=== PATIENT | female | born 1975 | race Hispanic/Latino ===

== ENCOUNTER 2018-08-06 04:02 | Emergency (ER) | payer OTHER | END 2018-08-06 05:04 | disposition home or self-care (01) | LOC: EDH 04:02 | DX: H92.02 Otalgia, left ear (principal); E11.9 Type 2 diabetes mellitus without complications | CPT/HCPCS: 99281 ==

== ENCOUNTER 2023-02-27 07:52 | Observation (INO) | payer MEDICAID ==
[2023-02-24 11:15] LABS: BASOPHILS % (AUTO) 0.5 % (0.0-5.0); EOSINOPHILS % (AUTO) 3.5 % (0.0-8.0); HEMATOCRIT 39.2 % (36-48); MEAN CORPUSCULAR HEMOGLOBIN 31.8 pg (27.0-33.0); MEAN CORPUSCULAR HGB CONC 33.7 g/dL (32.0-36.0); MEAN CORPUSCULAR VOLUME 94.5 fL (79-99); MONOCYTES % (AUTO) 10.4 % (3.0-13.0); NEUTROPHILS % (AUTO) 61.9 % (40.0-77.0); PLATELET COUNT (AUTO) 196 K/uL (130-400); RED BLOOD CELL COUNT(AUTO) 4.15 MIL/uL (4.00-5.50); RED CELL DISTRIBUTION WIDTH 12.4 % (11.0-15.5); WHITE BLOOD COUNT (AUTO) 7.5 K/uL (4.8-10.8)
[2023-02-24 11:27] LABS: APPEARANCE,URINE CLOUDY (CLEAR); BILIRUBIN,URINE NEGATIVE (NEGATIVE); COLOR,URINE LIGHT-YELLOW (YELLOW); GLUCOSE, URINE (UA) >=1000 mg/dL (NEGATIVE); KETONES,URINE NEGATIVE (NEGATIVE); LEUKOCYTE ESTERASE ,URINE 500 Leu/uL (NEGATIVE); NITRATE,URINE NEGATIVE (NEGATIVE); OCCULT BLOOD,URINE NEGATIVE (NEGATIVE); PH,URINE 5.5 (5.0-8.0); PROTEIN,URINE 30 mg/dL (NEGATIVE); UROBILINOGEN,URINE 0.2 mg/dL (0.2-1.0)
[2023-02-24 11:38] LABS: CREATININE 0.9 mg/dL (0.5-1.5); POTASSIUM 5.1 mmol/L (3.5-5.1)
[2023-02-24 11:50] LABS: INR 0.93 (0.85-1.15); PROTHROMBIN TIME 9.5 SEC (9.6-11.6)
[2023-02-24 11:52] LABS: PARTIAL THROMBOPLASTIN TIME 25.6 SEC (26.3-35.5)
[2023-02-24 11:54] LABS: BACTERIA,URINE RARE /HPF (None Seen); MUCUS,URINE RARE LPF (None Seen); SQUAMOUS EPITHELIAL CELL,UR RARE /HPF (0-2); WBC,URINE 26-50 /HPF (0-1)
[2023-02-24 12:15] VITALS: BP 113/67
[2023-02-24 13:25] LABS: B-TYPE NATRIURETIC PEPTIDE 233 pg/mL (0-100)
[~2023-02-27] VITALS: Ht 160 cm; Wt 77.1 kg
[2023-02-27] VITALS (10 sets, daily range): BP systolic 107–133; BP diastolic 69–96
[~2023-02-27 07:52] MED LIST: ATOR40TA69 PO; EMPA10TA PO; FAMO20TA8 PO; INS7030 SQ; LISI20TA24 PO; METF-446 PO; METO25TA6 PO; PARO-37 PO
[2023-02-27] MEDS ORDERED: 0.9%NACL 1000ML 1,000 ML IV ONE (09:18)
[2023-02-27] MEDS ORDERED: LIDOCAINE HCL 400MG/20ML VIAL ONE (14:59)
[2023-02-27] MEDS ORDERED: MIDAZOLAM HCL 1 MG/ML 2ML VIAL ONE ×2 (15:00→15:53)
[2023-02-27] MEDS ORDERED: IOHEXOL-350 75 ML VIAL IV ONE ×2 (15:00→16:08)
[2023-02-27] MEDS ORDERED: FENTANYL CITRATE PF 50 MCG/1 ML 2ML VIAL ONE (15:00)
[2023-02-27] MEDS ORDERED: HEPARIN 10,000 UNIT/10ML (1,000 UNIT/ML) VIAL ONE (15:00)
[2023-02-27] MEDS ORDERED: VERAPAMIL HCL 2.5 MG/ML VIAL ONE (15:00)
[2023-02-27] MEDS ORDERED: NITROGLYCERIN 50MG VIAL ONE (15:00)
[2023-02-27] MEDS ORDERED: EPTIFIBATIDE 2 MG/ML 10 ML VIAL IVP ONE (16:19)
[2023-02-27] MEDS ORDERED: EPTIFIBATIDE 75MG/100ML BOTTLE 100 ML IV ONE (16:19)
[2023-02-27] MEDS ORDERED: ASPIRIN 81MG CHEW TAB ONE (16:20)
[2023-02-27] MEDS ORDERED: CLOPIDOGREL 300MG TAB ONE (16:20)
[2023-02-27] MEDS ORDERED: GLUCAGON 1MG KIT 1 MG ML IM PRN (17:30)
[2023-02-27] MEDS ORDERED: DEXTROSE 50%-WATER 50 ML DISP.SYRIN IV PRN (17:30)
[2023-02-27] MEDS ORDERED: 0.9% NACL 250ML 250 ML IV STA (21:20)
[2023-02-27] MEDS ORDERED: 0.9%NACL 1000ML 1,000 ML IV SCH (21:30)
[2023-02-28 00:03] VITALS: BP 102/66
[2023-02-28 04:20] VITALS: BP 103/63
[2023-02-28 07:09] LABS: CREATININE 0.8 mg/dL (0.5-1.5); POTASSIUM 4.2 mmol/L (3.5-5.1)
[2023-02-28] MEDS ORDERED: CLOP-31 PO (07:34)
[2023-02-28] MEDS ORDERED: ATOR40TA71 PO (07:34)
[2023-02-28] MEDS ORDERED: METO-408 PO (07:34)
[2023-02-28] MEDS ORDERED: ASPI-1197 PO (07:34)
[2023-02-28 08:10] VITALS: BP 132/80
[2023-02-28] MEDS ORDERED: METOPROLOL SUCCINATE 25 MG TAB.SR.24H PO SCH (09:00)
[2023-02-28] MEDS ORDERED: CLOPIDOGREL 75MG TAB PO SCH (09:00)
[2023-02-28] MEDS ORDERED: ASPIRIN 81MG CHEW TAB PO SCH (09:00)
[2023-02-28] MEDS ORDERED: ATORVASTATIN 40 MG TABLET PO SCH (21:00)
== END 2023-02-28 09:20 | disposition home or self-care (01) ==
LOC: DAH 07:52 → DAHIP 07:53 → DAH 07:53 → 2DH 21:00
PROVIDERS: ADMIT Student in an Organized Health Care Education/Training Program; ATTEND Student in an Organized Health Care Education/Training Program
DX: I25.10 Atherosclerotic heart disease of native coronary artery without angina pectoris (principal); I10 Essential (primary) hypertension; E11.9 Type 2 diabetes mellitus without complications; E78.5 Hyperlipidemia, unspecified; Z79.899 Other long term (current) drug therapy; Z98.890 Other specified postprocedural states; Z95.1 Presence of aortocoronary bypass graft
CPT/HCPCS: 80048 ×2; 83880; 84703; 85025; 85610; 85730; 87088; 81001; 36415 ×2; 71045; 93005; 92978; 93458; 93571; 85347 ×3; 87077; 87186; 82948 ×4; C1769 ×3; C1887 ×2; C1894; C1753; C1874 ×3; C1725 ×3; G0378 ×12; J3010; J3490 ×3; J7030; J1644 ×3; J2250 ×2; J1327 ×2; Q9967 ×2; J7050; A4215; A4223 ×3; A4222; A4221; A4663; A4216; A4606; C9600 ×2; 99156; 99157

== ENCOUNTER → 2023-04-11 | Outpatient (CLI) | payer MEDICAID ==
[~2023-04-11] MED LIST changes: +ASPI-1197 PO; +CLOP-31 PO; +METO-408 PO; -METO25TA6 PO
[2023-04-11 12:29] LABS: CHOLESTEROL 103 mg/dL (<200); HDL CHOLESTEROL 32 mg/dL (35-85); LDL DIRECT 56 mg/dL (0-99); TRIGLYCERIDES 125 mg/dL (30-200)
[2023-04-11 12:37] LABS: HEMOGLOBIN A1C 7.5 % (4.0-6.0)
== END | disposition home or self-care (01) ==
LOC: LAB 09:07
PROVIDERS: ATTEND Student in an Organized Health Care Education/Training Program
DX: E78.5 Hyperlipidemia, unspecified (principal); R07.9 Chest pain, unspecified
CPT/HCPCS: 36415; 80061; 83036

== ENCOUNTER 2023-04-15 09:27 | Emergency (ER) | payer MEDICAID ==
[~2023-04-15] VITALS: Ht 160 cm; Wt 79.4 kg
[2023-04-15 11:03] VITALS: BP 123/78
== END 2023-04-15 11:03 | disposition home or self-care (01) ==
LOC: EDH 09:27
DX: H43.12 Vitreous hemorrhage, left eye (principal); E11.9 Type 2 diabetes mellitus without complications; E78.00 Pure hypercholesterolemia, unspecified; I10 Essential (primary) hypertension; Z79.4 Long term (current) use of insulin; Z79.82 Long term (current) use of aspirin; Z79.84 Long term (current) use of oral hypoglycemic drugs; Z79.899 Other long term (current) drug therapy; Z95.5 Presence of coronary angioplasty implant and graft
CPT/HCPCS: 99281

== ENCOUNTER 2023-04-29 12:51 | Emergency (ER) | payer MEDICAID ==
[~2023-04-29] VITALS: Ht 160 cm; Wt 79.4 kg
[2023-04-29 13:25] LABS: BASOPHILS % (AUTO) 0.6 % (0.0-5.0); EOSINOPHILS % (AUTO) 3.6 % (0.0-8.0); HEMATOCRIT 36.2 % (36-48); LYMPHOCYTES % (AUTO) 20.3 % (21.0-51.0); MEAN CORPUSCULAR HEMOGLOBIN 31.7 pg (27.0-33.0); MEAN CORPUSCULAR HGB CONC 33.1 g/dL (32.0-36.0); MEAN CORPUSCULAR VOLUME 95.5 fL (79-99); MONOCYTES % (AUTO) 9.1 % (3.0-13.0); NEUTROPHILS % (AUTO) 65.8 % (40.0-77.0); PLATELET COUNT (AUTO) 198 K/uL (130-400); RED BLOOD CELL COUNT(AUTO) 3.79 MIL/uL (4.00-5.50); RED CELL DISTRIBUTION WIDTH 12.7 % (11.0-15.5); WHITE BLOOD COUNT (AUTO) 8.3 K/uL (4.8-10.8)
[2023-04-29] MEDS ORDERED: ASPIRIN 81MG CHEW TAB PO ONE (13:30)
[2023-04-29 13:33] LABS: CREATININE 0.9 mg/dL (0.5-1.5); POTASSIUM 4.4 mmol/L (3.5-5.1)
[2023-04-29 13:37] LABS: ALBUMIN 3.5 g/dL (3.5-5.0); MAGNESIUM 1.7 mg/dL (1.80-2.40); TOTAL PROTEIN, SERUM 7.4 g/dL (6.0-8.3)
[2023-04-29 13:56] LABS: AMPHET/METH SCREEN,URINE NEGATIVE (NEGATIVE); APPEARANCE,URINE CLOUDY (CLEAR); BARBITURATE SCREEN, URINE NEGATIVE (NEGATIVE); BENZODIAZEPINES SCREEN,URINE NEGATIVE (NEGATIVE); BILIRUBIN,URINE NEGATIVE (NEGATIVE); CANNABINOID SCREEN,URINE NEGATIVE (NEGATIVE); COCAINE SCREEN,URINE NEGATIVE (NEGATIVE); GLUCOSE, URINE (UA) >=1000 mg/dL (NEGATIVE); KETONES,URINE NEGATIVE (NEGATIVE); LEUKOCYTE ESTERASE ,URINE 500 Leu/uL (NEGATIVE); NITRATE,URINE 2+ (NEGATIVE); OCCULT BLOOD,URINE NEGATIVE (NEGATIVE); OPIATE SCREEN,URINE NEGATIVE (NEGATIVE); PHENCYCLIDINE SCREEN,URINE NEGATIVE (NEGATIVE); PROTEIN,URINE 50 mg/dL (NEGATIVE); UROBILINOGEN,URINE 0.2 mg/dL (0.2-1.0)
[2023-04-29 13:57] LABS: COLOR,URINE YELLOW (YELLOW)
[2023-04-29 13:58] LABS: BACTERIA,URINE FEW /HPF (None Seen); RBC,URINE 0-1 /HPF (0-1); SQUAMOUS EPITHELIAL CELL,UR RARE /HPF (0-2); WBC,URINE 26-50 /HPF (0-1)
[2023-04-29] MEDS ORDERED: CEPH500B PO (16:58)
[2023-04-29] MEDS ORDERED: CEFTRIAXONE 1G VIAL IM ONE (17:00)
[2023-04-29 17:22] VITALS: BP 121/68
== END 2023-04-29 17:31 | disposition home or self-care (01) ==
LOC: EDH 12:51
DX: N39.0 Urinary tract infection, site not specified (principal); E11.9 Type 2 diabetes mellitus without complications; E78.00 Pure hypercholesterolemia, unspecified; I10 Essential (primary) hypertension; Z79.4 Long term (current) use of insulin; Z79.82 Long term (current) use of aspirin; Z79.84 Long term (current) use of oral hypoglycemic drugs; Z79.899 Other long term (current) drug therapy; Z95.5 Presence of coronary angioplasty implant and graft
CPT/HCPCS: 99285; 71045; 83735; 84484 ×2; 80053; 83880; 80305; 85025; 87077; 87088; 87186; 83605; 81001; 36415; 96372; 93005; J0696

== ENCOUNTER 2023-09-10 10:16 | Inpatient (IN) | payer OTHER, SELFPAY ==
[~2023-09-10] VITALS: Ht 160 cm; Wt 80.3 kg
[~2023-09-10 10:16] MED LIST changes: +BACL5TAB PO; +HUM10VIA SQ; -INS7030 SQ; +ISOS30TA92 PO; +METO-391 PO; -METO-408 PO; -PARO-37 PO
[2023-09-10 10:59] LABS: BASOPHILS # (AUTO) 0.07 K/uL (0.00-0.20); BASOPHILS % (AUTO) 0.6 % (0.0-5.0); EOSINOPHILS # (AUTO) 0.19 K/uL (0.00-0.70); EOSINOPHILS % (AUTO) 1.5 % (0.0-8.0); HEMATOCRIT 39.5 % (36-48); IMMATURE GRANULOCYTE ABSOLUTE 0.16 K/uL (0-1); LYMPHOCYTES % (AUTO) 23.3 % (21.0-51.0); MEAN CORPUSCULAR HEMOGLOBIN 30.5 pg (27.0-33.0); MEAN CORPUSCULAR HGB CONC 31.6 g/dL (32.0-36.0); MEAN CORPUSCULAR VOLUME 96.3 fL (79-99); MONOCYTES % (AUTO) 7.9 % (3.0-13.0); NEUTROPHILS # (AUTO) 8.3 K/uL (1.8-7.7); NEUTROPHILS % (AUTO) 65.4 % (40.0-77.0); PLATELET COUNT (AUTO) 220 K/uL (130-400); RED CELL DISTRIBUTION WIDTH 14.2 % (11.0-15.5); WHITE BLOOD COUNT (AUTO) 12.7 K/uL (4.8-10.8)
[2023-09-10 11:07] LABS: CREATININE 1.1 mg/dL (0.5-1.5); POTASSIUM 4.9 mmol/L (3.5-5.1)
[2023-09-10 11:12] LABS: ALBUMIN 3.4 g/dL (3.5-5.0); BILIRUBIN,TOTAL 0.8 mg/dL (0.2-1.0); TOTAL PROTEIN, SERUM 6.9 g/dL (6.0-8.3)
[2023-09-10] MEDS ORDERED: ONDANSETRON 4MG INJ IVP ONE (11:30)
[2023-09-10] MEDS ORDERED: ASPIRIN 325MG TAB PO ONE (11:30)
[2023-09-10 12:27] LABS: B-TYPE NATRIURETIC PEPTIDE 32 pg/mL (0-100)
[2023-09-10] MEDS ORDERED: 0.9% NACL 500ML IV.SOLN 500 ML IV ONE (12:30)
[2023-09-10] MEDS ORDERED: NITROGLYCERIN 0.4 MG SL TAB SL PRN (13:00)
[2023-09-10] MEDS: 0.9%NACL 1000ML 1,000 ML IV SCH ×2 (13:07→17:16)
[2023-09-10 13:32] VITALS: BP 117/61; PULSE 81; RESP 18
[2023-09-10 13:33] LABS: INR < 0.93 (0.85-1.15); PROTHROMBIN TIME 9.9 SEC (9.6-11.6)
[2023-09-10 13:34] LABS: PARTIAL THROMBOPLASTIN TIME 24.4 SEC (26.3-35.5)
[2023-09-10 13:36] LABS: HEMOGLOBIN A1C 7.9 % (4.0-6.0)
[2023-09-10 13:47] LABS: THYROID STIMULATING HORMONE 1.67 uIU/mL (0.36-3.74)
[2023-09-10 13:47] LABS: APPEARANCE,URINE CLEAR (CLEAR); BILIRUBIN,URINE NEGATIVE (NEGATIVE); COLOR,URINE LIGHT-YELLOW (YELLOW); GLUCOSE, URINE (UA) >=1000 mg/dL (NEGATIVE); KETONES,URINE NEGATIVE (NEGATIVE); LEUKOCYTE ESTERASE ,URINE 75 Leu/uL (NEGATIVE); NITRATE,URINE NEGATIVE (NEGATIVE); OCCULT BLOOD,URINE NEGATIVE (NEGATIVE); PROTEIN,URINE NEGATIVE (NEGATIVE); UROBILINOGEN,URINE 0.2 mg/dL (0.2-1.0)
[2023-09-10 13:48] LABS: ADD UA MICROSCOPIC YES
[2023-09-10 13:50] LABS: MUCUS,URINE RARE LPF (None Seen); SQUAMOUS EPITHELIAL CELL,UR RARE /HPF (0-2); YEAST,URINE BUDDING MANY /HPF (None Seen)
[2023-09-10] MEDS: ZOSYN 3.375GM +NS 50ML IV SCH ×2 (15:21→21:15)
[2023-09-10] MEDS: HYDROXYZINE 25 MG TABLET PO SCH ×3 (15:28→21:00)
[2023-09-10] MEDS ORDERED: HYDROXYZINE 25 MG TABLET PO PRN (15:30)
[2023-09-10] MEDS: INSULIN HUMULIN R 100 UNIT/ML 3ML SQ SCH ×2 (15:56→20:33)
[2023-09-10 16:30] VITALS: BP 116/83; PULSE 85; RESP 18
[2023-09-10] MEDS ORDERED: INSULIN HUMULIN R 100 UNIT/ML 3ML SQ SCH (16:30)
[2023-09-10 18:49] VITALS: BP 96/69; PULSE 84; RESP 18
[2023-09-10] MEDS ORDERED: DAPA5TAB PO (19:22)
[2023-09-10] MEDS ORDERED: GABA300C PO (19:24)
[2023-09-10] MEDS ORDERED: BENZ-226 PO (19:26)
[2023-09-10] MEDS: ATORVASTATIN 40 MG TABLET PO SCH (20:22)
[2023-09-10] MEDS: TRAZODONE HCL 50 MG TAB PO SCH ×2 (20:23→21:00)
[2023-09-10] MEDS ORDERED: NON-FORMULARY MEDICATION 1 EACH (Baclofen 5 MG) PO PRN (20:30)
[2023-09-10 20:42] LABS: AMPHET/METH SCREEN,URINE NEGATIVE (NEGATIVE); BARBITURATE SCREEN, URINE NEGATIVE (NEGATIVE); BENZODIAZEPINES SCREEN,URINE NEGATIVE (NEGATIVE); CANNABINOID SCREEN,URINE NEGATIVE (NEGATIVE); COCAINE SCREEN,URINE NEGATIVE (NEGATIVE); OPIATE SCREEN,URINE NEGATIVE (NEGATIVE); PHENCYCLIDINE SCREEN,URINE NEGATIVE (NEGATIVE)
[2023-09-10] MEDS ORDERED: BACLOFEN 10 MG TABLET PO PRN (21:00)
[2023-09-10] MEDS ORDERED: GABAPENTIN 300 MG CAPSULE PO SCH (21:00)
[2023-09-10 23:01] VITALS: BP 97/60; PULSE 82; RESP 18
[2023-09-11] VITALS (7 sets, daily range): BP systolic 96–110; BP diastolic 47–67; PULSE 72–94; RESP 18–20; O2SAT 98
[2023-09-11] MEDS: 0.9%NACL 1000ML 1,000 ML IV SCH (05:03)
[2023-09-11 05:28] LABS: BASOPHILS # (AUTO) 0.04 K/uL (0.00-0.20); BASOPHILS % (AUTO) 0.4 % (0.0-5.0); EOSINOPHILS # (AUTO) 0.16 K/uL (0.00-0.70); EOSINOPHILS % (AUTO) 1.7 % (0.0-8.0); HEMATOCRIT 35.6 % (36-48); IMMATURE GRANULOCYTE ABSOLUTE 0.12 K/uL (0-1); LYMPHOCYTES # (AUTO) 2.2 K/uL (1.0-4.8); LYMPHOCYTES % (AUTO) 23.2 % (21.0-51.0); MEAN CORPUSCULAR HGB CONC 31.2 g/dL (32.0-36.0); MEAN CORPUSCULAR VOLUME 99.4 fL (79-99); MONOCYTES # (AUTO) 0.8 K/uL (0.1-1.0); MONOCYTES % (AUTO) 8.4 % (3.0-13.0); NEUTROPHILS # (AUTO) 6.1 K/uL (1.8-7.7); PLATELET COUNT (AUTO) 170 K/uL (130-400); RED BLOOD CELL COUNT(AUTO) 3.58 MIL/uL (4.00-5.50); RED CELL DISTRIBUTION WIDTH 14.3 % (11.0-15.5); WHITE BLOOD COUNT (AUTO) 9.4 K/uL (4.8-10.8)
[2023-09-11] MEDS: ZOSYN 3.375GM +NS 50ML IV SCH ×3 (05:31→22:32)
[2023-09-11 05:52] LABS: ALBUMIN 2.7 g/dL (3.5-5.0); BILIRUBIN,TOTAL 0.6 mg/dL (0.2-1.0); MAGNESIUM 2.1 mg/dL (1.80-2.40); POTASSIUM 4.5 mmol/L (3.5-5.1); TOTAL PROTEIN, SERUM 6.1 g/dL (6.0-8.3)
[2023-09-11] MEDS: INSULIN HUMULIN R 100 UNIT/ML 3ML SQ SCH ×4 (07:30→20:58)
[2023-09-11] MEDS: LISINOPRIL 20 MG TABLET PO SCH (08:22)
[2023-09-11] MEDS: ASPIRIN 81 MG EC TAB PO SCH (08:22)
[2023-09-11] MEDS: METOPROLOL SUCCINATE 50 MG TAB.SR.24H PO SCH (08:22)
[2023-09-11] MEDS: HYDROXYZINE 25 MG TABLET PO SCH ×3 (08:23→21:10)
[2023-09-11] MEDS: CLOPIDOGREL 75MG TAB PO SCH (08:24)
[2023-09-11] MEDS ORDERED: ISOSORBIDE MONO 30MG SR TAB PO SCH (09:00)
[2023-09-11] MEDS: ISOSORBIDE MONO 30MG SR TAB PO SCH (13:58)
[2023-09-11] MEDS: ATORVASTATIN 40 MG TABLET PO SCH (21:10)
[2023-09-11] MEDS: TRAZODONE HCL 50 MG TAB PO SCH (21:10)
[2023-09-12] VITALS (7 sets, daily range): BP systolic 91–119; BP diastolic 50–67; PULSE 67–80; RESP 18–20; O2SAT 98
[2023-09-12] MEDS: 0.9%NACL 1000ML 1,000 ML IV SCH (03:23)
[2023-09-12] MEDS: INSULIN HUMULIN R 100 UNIT/ML 3ML SQ SCH ×4 (05:17→20:43)
[2023-09-12] MEDS: ZOSYN 3.375GM +NS 50ML IV SCH ×3 (06:05→20:46)
[2023-09-12] MEDS ORDERED: REGADENOSON 0.4 MG/5 ML PF SYG IVP SCH (07:30)
[2023-09-12] MEDS: LISINOPRIL 20 MG TABLET PO SCH (09:04)
[2023-09-12] MEDS: ASPIRIN 81 MG EC TAB PO SCH (09:04)
[2023-09-12] MEDS: HYDROXYZINE 25 MG TABLET PO SCH ×3 (09:04→20:41)
[2023-09-12] MEDS: METOPROLOL SUCCINATE 50 MG TAB.SR.24H PO SCH (09:04)
[2023-09-12] MEDS: ISOSORBIDE MONO 30MG SR TAB PO SCH (09:04)
[2023-09-12] MEDS: CLOPIDOGREL 75MG TAB PO SCH (09:04)
[2023-09-12 09:07] LABS: HEMATOCRIT 34.1 % (36-48); MEAN CORPUSCULAR HEMOGLOBIN 31.2 pg (27.0-33.0); MEAN CORPUSCULAR HGB CONC 32.6 g/dL (32.0-36.0); MEAN CORPUSCULAR VOLUME 95.8 fL (79-99); RED BLOOD CELL COUNT(AUTO) 3.56 MIL/uL (4.00-5.50); RED CELL DISTRIBUTION WIDTH 14.3 % (11.0-15.5); WHITE BLOOD COUNT (AUTO) 8.1 K/uL (4.8-10.8)
[2023-09-12 09:24] LABS: CREATININE 0.9 mg/dL (0.5-1.5); MAGNESIUM 1.8 mg/dL (1.80-2.40); POTASSIUM 4.5 mmol/L (3.5-5.1)
[2023-09-12] MEDS: MAGNESIUM 2GM PREMIX 50ML 50 ML IV SCH (12:31)
[2023-09-12] MEDS: TRAZODONE HCL 50 MG TAB PO SCH (20:41)
[2023-09-12] MEDS: ATORVASTATIN 40 MG TABLET PO SCH (20:41)
[2023-09-13] VITALS (11 sets, daily range): BP systolic 94–152; BP diastolic 56–88; PULSE 68–80; RESP 18–20
[2023-09-13] MEDS: ZOSYN 3.375GM +NS 50ML IV SCH (06:27)
[2023-09-13] MEDS: INSULIN HUMULIN R 100 UNIT/ML 3ML SQ SCH ×4 (06:28→21:05)
[2023-09-13] MEDS: HYDROXYZINE 25 MG TABLET PO SCH ×3 (08:53→20:57)
[2023-09-13 08:58] LABS: HEMATOCRIT 35.9 % (36-48); MEAN CORPUSCULAR HEMOGLOBIN 31.1 pg (27.0-33.0); MEAN CORPUSCULAR HGB CONC 31.8 g/dL (32.0-36.0); MEAN CORPUSCULAR VOLUME 98.1 fL (79-99); RED BLOOD CELL COUNT(AUTO) 3.66 MIL/uL (4.00-5.50); RED CELL DISTRIBUTION WIDTH 14.2 % (11.0-15.5); WHITE BLOOD COUNT (AUTO) 8.1 K/uL (4.8-10.8)
[2023-09-13] MEDS ORDERED: LIDOCAINE HCL 400MG/20ML VIAL ONE (11:10)
[2023-09-13] MEDS ORDERED: IOHEXOL 350 MG/ML 100ML INFUS..BTL IV ONE (11:10)
[2023-09-13] MEDS ORDERED: BIVALIRUDIN 250 MG/VIAL IV ONE (11:10)
[2023-09-13] MEDS: ISOSORBIDE MONO 30MG SR TAB PO SCH (13:42)
[2023-09-13] MEDS: LISINOPRIL 20 MG TABLET PO SCH (13:42)
[2023-09-13] MEDS: METOPROLOL SUCCINATE 50 MG TAB.SR.24H PO SCH (13:42)
[2023-09-13] MEDS: ASPIRIN 81 MG EC TAB PO SCH (13:47)
[2023-09-13] MEDS: ACETAMINOPHEN 325 MG TAB PO PRN (17:02)
[2023-09-13] MEDS: ATORVASTATIN 40 MG TABLET PO SCH (20:57)
[2023-09-13] MEDS: TRAZODONE HCL 50 MG TAB PO SCH (20:57)
[2023-09-14] VITALS (8 sets, daily range): BP systolic 97–128; BP diastolic 60–69; PULSE 70–76; RESP 18; O2SAT 97
[2023-09-14] MEDS: ACETAMINOPHEN 325 MG TAB PO PRN ×2 (04:24→15:05)
[2023-09-14 04:52] LABS: HEMATOCRIT 31.8 % (36-48); MEAN CORPUSCULAR HEMOGLOBIN 31.1 pg (27.0-33.0); MEAN CORPUSCULAR HGB CONC 32.4 g/dL (32.0-36.0); MEAN CORPUSCULAR VOLUME 96.1 fL (79-99); RED BLOOD CELL COUNT(AUTO) 3.31 MIL/uL (4.00-5.50); RED CELL DISTRIBUTION WIDTH 14.1 % (11.0-15.5); WHITE BLOOD COUNT (AUTO) 7.9 K/uL (4.8-10.8)
[2023-09-14 05:17] LABS: ALBUMIN 2.4 g/dL (3.5-5.0); BILIRUBIN,TOTAL 0.5 mg/dL (0.2-1.0); CREATININE 0.8 mg/dL (0.5-1.5); MAGNESIUM 2.1 mg/dL (1.80-2.40); POTASSIUM 4.5 mmol/L (3.5-5.1); TOTAL PROTEIN, SERUM 5.9 g/dL (6.0-8.3)
[2023-09-14] MEDS: INSULIN HUMULIN R 100 UNIT/ML 3ML SQ SCH ×4 (07:16→21:10)
[2023-09-14] MEDS: ASPIRIN 81 MG EC TAB PO SCH (09:41)
[2023-09-14] MEDS: ISOSORBIDE MONO 30MG SR TAB PO SCH (09:41)
[2023-09-14] MEDS: METOPROLOL SUCCINATE 50 MG TAB.SR.24H PO SCH (09:42)
[2023-09-14] MEDS: LISINOPRIL 20 MG TABLET PO SCH (09:42)
[2023-09-14] MEDS: HYDROXYZINE 25 MG TABLET PO SCH ×3 (09:42→21:10)
[2023-09-14 10:03] LABS: ABG BASE EXCESS -0.7 mmol/L (-2.0-3.0); ABG HCO3 23.7 mmol/L (21.0-28.0); ABG OXYGEN SATURATION 92.4 % (95.0-99.0); ABG PCO2 39 mmHg (32-45); ABG PH 7.405 (7.35-7.450); PO2, ARTERIAL BG 63.2 mmHg (83.0-108.0); VENT MODE, BG RA (ROOM AIR)
[2023-09-14] MEDS: ATORVASTATIN 40 MG TABLET PO SCH (21:10)
[2023-09-14] MEDS: TRAZODONE HCL 50 MG TAB PO SCH (21:10)
[2023-09-15] VITALS (8 sets, daily range): BP systolic 119–132; BP diastolic 66–78; PULSE 68–74; RESP 16–20; O2SAT 97
[2023-09-15 06:02] LABS: HEMATOCRIT 31.6 % (36-48); MEAN CORPUSCULAR HEMOGLOBIN 31.2 pg (27.0-33.0); MEAN CORPUSCULAR HGB CONC 32.6 g/dL (32.0-36.0); MEAN CORPUSCULAR VOLUME 95.8 fL (79-99); RED BLOOD CELL COUNT(AUTO) 3.3 MIL/uL (4.00-5.50); WHITE BLOOD COUNT (AUTO) 6.6 K/uL (4.8-10.8)
[2023-09-15 06:28] LABS: ALBUMIN 2.6 g/dL (3.5-5.0); BILIRUBIN,TOTAL 0.5 mg/dL (0.2-1.0); CREATININE 0.7 mg/dL (0.5-1.5); POTASSIUM 4.5 mmol/L (3.5-5.1); TOTAL PROTEIN, SERUM 6.1 g/dL (6.0-8.3)
[2023-09-15] MEDS: INSULIN HUMULIN R 100 UNIT/ML 3ML SQ SCH ×4 (06:44→21:17)
[2023-09-15] MEDS: ISOSORBIDE MONO 30MG SR TAB PO SCH (09:20)
[2023-09-15] MEDS: ASPIRIN 81 MG EC TAB PO SCH (09:20)
[2023-09-15] MEDS: METOPROLOL SUCCINATE 50 MG TAB.SR.24H PO SCH (09:20)
[2023-09-15] MEDS: LISINOPRIL 20 MG TABLET PO SCH (09:21)
[2023-09-15] MEDS: HYDROXYZINE 25 MG TABLET PO SCH ×3 (09:21→21:00)
[2023-09-15] MEDS: TRAZODONE HCL 50 MG TAB PO SCH (21:00)
[2023-09-15] MEDS: ATORVASTATIN 40 MG TABLET PO SCH (21:16)
[2023-09-16] VITALS (8 sets, daily range): BP systolic 108–141; BP diastolic 59–81; PULSE 66–82; RESP 16–20; O2SAT 96
[2023-09-16 05:17] LABS: HEMATOCRIT 33.5 % (36-48); MEAN CORPUSCULAR HEMOGLOBIN 31.2 pg (27.0-33.0); MEAN CORPUSCULAR HGB CONC 32.2 g/dL (32.0-36.0); MEAN CORPUSCULAR VOLUME 96.8 fL (79-99); RED BLOOD CELL COUNT(AUTO) 3.46 MIL/uL (4.00-5.50)
[2023-09-16 05:48] LABS: ALBUMIN 2.7 g/dL (3.5-5.0); BILIRUBIN,TOTAL 0.5 mg/dL (0.2-1.0); CREATININE 0.7 mg/dL (0.5-1.5); MAGNESIUM 1.8 mg/dL (1.80-2.40); POTASSIUM 4.3 mmol/L (3.5-5.1); TOTAL PROTEIN, SERUM 6.4 g/dL (6.0-8.3)
[2023-09-16] MEDS: MAGNESIUM 2GM PREMIX 50ML 50 ML IV SCH (06:27)
[2023-09-16] MEDS: INSULIN HUMULIN R 100 UNIT/ML 3ML SQ SCH ×4 (06:33→21:36)
[2023-09-16] MEDS: METOPROLOL SUCCINATE 50 MG TAB.SR.24H PO SCH (08:43)
[2023-09-16] MEDS: HYDROXYZINE 25 MG TABLET PO SCH ×3 (08:43→21:34)
[2023-09-16] MEDS: ASPIRIN 81 MG EC TAB PO SCH (08:43)
[2023-09-16] MEDS: LISINOPRIL 20 MG TABLET PO SCH (08:43)
[2023-09-16] MEDS: ISOSORBIDE MONO 30MG SR TAB PO SCH (08:43)
[2023-09-16] MEDS: ACETAMINOPHEN 325 MG TAB PO PRN (08:44)
[2023-09-16] MEDS: TRAZODONE HCL 50 MG TAB PO SCH (21:33)
[2023-09-16] MEDS: ATORVASTATIN 40 MG TABLET PO SCH (21:34)
[2023-09-17] VITALS (10 sets, daily range): BP systolic 94–194; BP diastolic 60–69; PULSE 64–80; RESP 16–18; O2SAT 97–98
[2023-09-17] MEDS: INSULIN HUMULIN R 100 UNIT/ML 3ML SQ SCH ×4 (06:57→21:15)
[2023-09-17] MEDS: ISOSORBIDE MONO 30MG SR TAB PO SCH (09:21)
[2023-09-17] MEDS: HYDROXYZINE 25 MG TABLET PO SCH ×3 (09:21→21:16)
[2023-09-17] MEDS: LISINOPRIL 20 MG TABLET PO SCH (09:21)
[2023-09-17] MEDS: ASPIRIN 81 MG EC TAB PO SCH (09:21)
[2023-09-17] MEDS: METOPROLOL SUCCINATE 50 MG TAB.SR.24H PO SCH (09:21)
[2023-09-17] MEDS ORDERED: CEFAZOLIN SODIUM 1 GM VIAL IVPB SCH (18:00)
[2023-09-17] MEDS ORDERED: INSULIN GLARGINE 100 UNITS/ML 10 ML VIAL SQ SCH (21:00)
[2023-09-17] MEDS: ATORVASTATIN 40 MG TABLET PO SCH (21:16)
[2023-09-17] MEDS: TRAZODONE HCL 50 MG TAB PO SCH (21:16)
[2023-09-18] VITALS (54 sets, daily range): BP systolic 64–275; BP diastolic 55–272; PULSE 71–131; RESP 7–50; TEMP 99.3–102; O2SAT 97–100
[2023-09-18 03:53] LABS: HEMATOCRIT 32.7 % (36-48); MEAN CORPUSCULAR HEMOGLOBIN 30.2 pg (27.0-33.0); MEAN CORPUSCULAR HGB CONC 31.8 g/dL (32.0-36.0); MEAN CORPUSCULAR VOLUME 95.1 fL (79-99); RED BLOOD CELL COUNT(AUTO) 3.44 MIL/uL (4.00-5.50); RED CELL DISTRIBUTION WIDTH 13.9 % (11.0-15.5); WHITE BLOOD COUNT (AUTO) 7.1 K/uL (4.8-10.8)
[2023-09-18 04:01] LABS: HEMOGLOBIN A1C 8.2 % (4.0-6.0)
[2023-09-18 04:03] LABS: POTASSIUM 5.2 mmol/L (3.5-5.1)
[2023-09-18 04:09] LABS: INR < 0.93 (0.85-1.15); PROTHROMBIN TIME 10.1 SEC (9.6-11.6)
[2023-09-18 04:10] LABS: ALBUMIN 2.7 g/dL (3.5-5.0); BILIRUBIN,TOTAL 0.5 mg/dL (0.2-1.0); MAGNESIUM 2.1 mg/dL (1.80-2.40); PARTIAL THROMBOPLASTIN TIME 25.6 SEC (26.3-35.5); TOTAL PROTEIN, SERUM 6.1 g/dL (6.0-8.3)
[2023-09-18] MEDS ORDERED: CEFAZOLIN SODIUM 1 GM VIAL IVPB SCH (06:00)
[2023-09-18] MEDS: INSULIN HUMULIN R 100 UNIT/ML 3ML SQ SCH (06:09)
[2023-09-18] MEDS: METOPROLOL SUCCINATE 50 MG TAB.SR.24H PO SCH (06:26)
[2023-09-18] MEDS ORDERED: AMINOCAPROIC ACID 15,000 MG in 0.9% NACL 500ML IV PRN (07:30)
[2023-09-18] MEDS ORDERED: EPINEPHRINE PF 1MG (1:1,000) 10 MG in 0.9% NACL 250ML 240 ML IV PRN (07:30)
[2023-09-18] MEDS ORDERED: NOREPINEPHRINE BITARTRATE 8 MG in 0.9% NACL 250ML 250 ML IV PRN (07:30)
[2023-09-18] MEDS ORDERED: LIDOCAINE 2G/250ML 250 ML IV ONE (07:38)
[2023-09-18] MEDS ORDERED: NITROGLYCERIN 50MG/D5W 250ML 1 BOT ONE (08:00)
[2023-09-18] MEDS ORDERED: 0.9%NACL 1000ML 1,000 ML IV ONE (08:02)
[2023-09-18] MEDS ORDERED: CEFAZOLIN SODIUM 2 GM VIAL ONE (08:02)
[2023-09-18] MEDS ORDERED: CEFAZOLIN SODIUM 1 GM VIAL ONE ×2 (08:13→12:54)
[2023-09-18] MEDS ORDERED: PAPAVERINE HCL 30 MG/ML 2ML VIAL ONE (08:14)
[2023-09-18] MEDS ORDERED: KETAMINE 50MG/ML SYRINGE 50 MG/ML DISP.SYRIN ONE ×2 (08:54→12:16)
[2023-09-18] MEDS ORDERED: MIDAZOLAM HCL 1 MG/ML 2ML VIAL ONE ×3 (08:54→12:17)
[2023-09-18] MEDS ORDERED: PROTAMINE SULFATE 10 MG/ML 25ML VIAL IV ONE (08:57)
[2023-09-18] MEDS ORDERED: ESMOLOL HCL 10 MG/ML 10 ML VIAL ONE (08:57)
[2023-09-18] MEDS ORDERED: LIDOCAINE PF 100MG/5ML (2%) SYRINGE 5ML ONE (08:57)
[2023-09-18] MEDS ORDERED: NOREPINEPHRINE BITARTRATE 1 MG/1 ML ML IV ONE (08:57)
[2023-09-18] MEDS ORDERED: PROPOFOL 10 MG/ML 20ML VIAL IV ONE (08:57)
[2023-09-18] MEDS ORDERED: EPINEPHRINE PF 1MG (1:1,000) 1 MG/ML AMP ONE (08:57)
[2023-09-18] MEDS ORDERED: HEPARIN 10,000 UNIT/10ML (1,000 UNIT/ML) VIAL ONE ×2 (08:57→09:46)
[2023-09-18] MEDS ORDERED: AMINOCAPROIC ACID 5,000MG VIAL ONE (08:57)
[2023-09-18] MEDS ORDERED: SODIUM BICARB 50MEQ 50ML VIAL 200 ML ONE (08:57)
[2023-09-18] MEDS ORDERED: ROCURONIUM 10MG/1ML SYR 10 MG/ML ML ONE (08:58)
[2023-09-18] MEDS ORDERED: FENTANYL CITRATE PF 50 MCG/1 ML 2ML VIAL ONE ×2 (08:59→09:00)
[2023-09-18] MEDS ORDERED: 0.9%NACL 10ML VIAL IVP PRN (09:00)
[2023-09-18] MEDS ORDERED: GLUCAGON 1MG KIT 1 MG ML IM PRN (09:00)
[2023-09-18] MEDS ORDERED: 0.9%NACL 1000ML 1,000 ML IV SCH (09:00)
[2023-09-18] MEDS ORDERED: PROPOFOL 1000 MG/100 ML 100 ML IV PRN (09:00)
[2023-09-18] MEDS ORDERED: POTASSIUM PHOS 15 mMOL+NS250ML 250 ML IV PRN (09:00)
[2023-09-18] MEDS ORDERED: MAGNESIUM HYDROXIDE 30 ML/UDCUP PO PRN (09:00)
[2023-09-18] MEDS ORDERED: MORPHINE 4 MG SYG IV PRN (09:00)
[2023-09-18] MEDS ORDERED: LACTULOSE 20 GM/30 ML UDCUP PO PRN (09:00)
[2023-09-18] MEDS ORDERED: NITROGLYCERIN 50MG/D5W 250ML 250 BOT IV SCH (09:00)
[2023-09-18] MEDS ORDERED: ONDANSETRON 4MG INJ IV PRN (09:00)
[2023-09-18] MEDS ORDERED: MORPHINE 2 MG SYG IV PRN (09:00)
[2023-09-18] MEDS ORDERED: EPINEPHRINE 10 MG in 0.9% NACL 250ML IV PRN (09:00)
[2023-09-18] MEDS ORDERED: AMINOCAPROIC ACID 5,000MG VIAL 15,000 MG in 0.9% NACL 250ML 250 ML IV SCH (09:00)
[2023-09-18] MEDS ORDERED: DEXTROSE 50%-WATER 50 ML DISP.SYRIN IV PRN (09:00)
[2023-09-18] MEDS ORDERED: 0.9% NACL 500ML IV.SOLN 500 ML IV SCH (09:00)
[2023-09-18] MEDS ORDERED: ACETAMINOPHEN 650 MG SUPPOSITORY RC PRN (09:00)
[2023-09-18] MEDS ORDERED: ALBUMIN (HUMAN) 5% 250 ML IV PRN (09:00)
[2023-09-18] MEDS ORDERED: NICARDIPINE 25MG INJ IV ONE (09:21)
[2023-09-18] MEDS ORDERED: NOREPINEPHRIN 8MG/250ML NS 250 ML IV PRN (09:30)
[2023-09-18 09:55] LABS: ABG BASE EXCESS -1.2 mmol/L (-2.0-3.0); ABG HCO3 22.5 mmol/L (21.0-28.0); ABG OXYGEN SATURATION 98.3 % (95.0-99.0); ABG PCO2 34 mmHg (32-45); ABG PH 7.438 (7.35-7.450); CARBON MONOXIDE 0.3; DEVICE COMMENT 1; HHb 1.7; PO2, ARTERIAL BG 291.1 mmHg (83.0-108.0)
[2023-09-18] MEDS ORDERED: FENTANYL CITRATE PF 50 MCG/1 ML 20ML VIAL IJ ONE (10:33)
[2023-09-18] MEDS ORDERED: ASPIRIN 81MG CHEW TAB NG ONE (12:00)
[2023-09-18] MEDS ORDERED: PROTAMINE SULFATE 10 MG/ML 5 ML VIAL ONE (12:00)
[2023-09-18 12:28] LABS: ABG BASE EXCESS -0.9 mmol/L (-2.0-3.0); ABG HCO3 23.4 mmol/L (21.0-28.0); ABG OXYGEN SATURATION 98.4 % (95.0-99.0); ABG PCO2 37 mmHg (32-45); ABG PH 7.418 (7.35-7.450); CARBON MONOXIDE 0.3; DEVICE COMMENT 2; HHb 1.6; PO2, ARTERIAL BG 389.5 mmHg (83.0-108.0)
[2023-09-18] MEDS ORDERED: SODIUM BICARB 50MEQ 50ML VIAL 100 ML ONE (12:31)
[2023-09-18 13:15] LABS: ABG BASE EXCESS -4.5 mmol/L (-2.0-3.0); ABG HCO3 20.5 mmol/L (21.0-28.0); ABG PCO2 38 mmHg (32-45); ABG PH 7.353 (7.35-7.450); CARBON MONOXIDE 0.3; PO2, ARTERIAL BG 282.2 mmHg (83.0-108.0); VENT MODE, BG SIMV, PS10 (ROOM AIR)
[2023-09-18] MEDS ORDERED: SODIUM BICARB 50MEQ 50ML VIAL 50 ML ONE (13:17)
[2023-09-18 13:26] LABS: HEMATOCRIT 32.2 % (36-48); MEAN CORPUSCULAR HEMOGLOBIN 31.3 pg (27.0-33.0); MEAN CORPUSCULAR HGB CONC 32.9 g/dL (32.0-36.0); RED BLOOD CELL COUNT(AUTO) 3.39 MIL/uL (4.00-5.50); RED CELL DISTRIBUTION WIDTH 14.1 % (11.0-15.5); WHITE BLOOD COUNT (AUTO) 17.8 K/uL (4.8-10.8)
[2023-09-18 13:39] LABS: INR 0.99 (0.85-1.15); PROTHROMBIN TIME 11.5 SEC (9.6-11.6)
[2023-09-18 13:40] LABS: CREATININE 0.7 mg/dL (0.5-1.5); MAGNESIUM 1.1 mg/dL (1.80-2.40); PARTIAL THROMBOPLASTIN TIME 24.7 SEC (26.3-35.5); PHOSPHORUS 4.4 mg/dL (2.5-4.9); POTASSIUM 4.4 mmol/L (3.5-5.1)
[2023-09-18] MEDS: INSULIN REGULAR, HUMAN 3ML 100 UNIT in 0.9%NACL 100ML 99 ML IV SCH ×4 (13:54→21:55)
[2023-09-18] MEDS ORDERED: SODIUM BICARB 50MEQ 50ML VIAL IV PRN ×2 (14:00)
[2023-09-18] MEDS: CEFAZOLIN SODIUM 2 GM VIAL IVPB SCH ×2 (14:00→21:31)
[2023-09-18] MEDS: FAMOTIDINE 20MG VIAL IV SCH ×2 (14:02→20:17)
[2023-09-18 14:17] LABS: ABG BASE EXCESS 1.3 mmol/L (-2.0-3.0); ABG HCO3 24.2 mmol/L (21.0-28.0); ABG OXYGEN SATURATION 97.8 % (95.0-99.0); ABG PCO2 33 mmHg (32-45); ABG PH 7.488 (7.35-7.450); CARBON MONOXIDE 0.3; HHb 2.2; PO2, ARTERIAL BG 314.8 mmHg (83.0-108.0); VENT MODE, BG SIMV, PS10 (ROOM AIR)
[2023-09-18] MEDS: MAGNESIUM 2GM PREMIX 50ML 50 ML IV PRN ×2 (14:20→18:48)
[2023-09-18 15:20] LABS: ABG BASE EXCESS -1.8 mmol/L (-2.0-3.0); ABG HCO3 22.1 mmol/L (21.0-28.0); ABG OXYGEN SATURATION 97.8 % (95.0-99.0); ABG PCO2 35 mmHg (32-45); ABG PH 7.422 (7.35-7.450); CARBON MONOXIDE 0.3; HHb 2.2; PO2, ARTERIAL BG 413.2 mmHg (83.0-108.0); VENT MODE, BG SIMV, PS10 (ROOM AIR)
[2023-09-18] MEDS: SODIUM BICARB 50MEQ 50ML VIAL IV PRN ×2 (15:22→16:59)
[2023-09-18 16:55] LABS: ABG BASE EXCESS -0.1 mmol/L (-2.0-3.0); ABG HCO3 22.9 mmol/L (21.0-28.0); ABG OXYGEN SATURATION 97.1 % (95.0-99.0); ABG PCO2 32 mmHg (32-45); ABG PH 7.474 (7.35-7.450); CARBON MONOXIDE 0.1; DEVICE COMMENT ALINE SYLVIA RN; HHb 2.9; PO2, ARTERIAL BG 133.4 mmHg (83.0-108.0); VENT MODE, BG AC (ROOM AIR)
[2023-09-18] MEDS: POTASSIUM CHLORIDE 20MEQ/100ML 100 ML IV PRN ×3 (17:00→19:56)
[2023-09-18 17:33] LABS: ABG BASE EXCESS 3.5 mmol/L (-2.0-3.0); ABG HCO3 27.3 mmol/L (21.0-28.0); ABG OXYGEN SATURATION 96.2 % (95.0-99.0); ABG PCO2 38 mmHg (32-45); ABG PH 7.471 (7.35-7.450); CARBON MONOXIDE 0.3; HHb 3.8; PO2, ARTERIAL BG 98.3 mmHg (83.0-108.0); VENT MODE, BG CPAP 5-10 (ROOM AIR)
[2023-09-18] MEDS: TRAMADOL HCL 50 MG TABLET PO PRN ×2 (18:00→18:29)
[2023-09-18] MEDS: ACETAMINOPHEN 325 MG TAB PO PRN ×2 (19:01→23:02)
[2023-09-18] MEDS ORDERED: PHARMACY COMMUNICATION MISC SCH (19:30)
[2023-09-18 19:34] LABS: ABG HCO3 26.8 mmol/L (21.0-28.0); ABG OXYGEN SATURATION 96.8 % (95.0-99.0); ABG PCO2 43 mmHg (32-45); ABG PH 7.413 (7.35-7.450); CARBON MONOXIDE 0.3; DEVICE COMMENT LINE RN CHRIS; HHb 3.2
[2023-09-18 19:38] LABS: ABG BASE EXCESS 2.5 mmol/L (-2.0-3.0); ABG HCO3 26.6 mmol/L (21.0-28.0); ABG PCO2 39 mmHg (32-45); ABG PH 7.448 (7.35-7.450); CARBON MONOXIDE 0.3; DEVICE COMMENT LINE RN CHRIS; PO2, ARTERIAL BG 139.1 mmHg (83.0-108.0)
[2023-09-18] MEDS: DOCUSATE SODIUM 100 MG CAP PO SCH (20:17)
[2023-09-18] MEDS: ATORVASTATIN 40 MG TABLET PO SCH (21:04)
[2023-09-19] VITALS (77 sets, daily range): BP systolic 93–141; BP diastolic 39–87; PULSE 81–111; RESP 11–40; TEMP 97.5–101.1; O2SAT 97–100
[2023-09-19] MEDS: HYDROCODONE/ACETAMINOPHEN 7.5/325 MG TAB PO PRN ×3 (00:25→09:43)
[2023-09-19] MEDS ORDERED: CALCIUM GLUC 1GM/10ML VIAL ONE ×2 (03:38→04:25)
[2023-09-19 03:39] LABS: HEMATOCRIT 31.5 % (36-48); MEAN CORPUSCULAR HEMOGLOBIN 31.3 pg (27.0-33.0); MEAN CORPUSCULAR HGB CONC 32.7 g/dL (32.0-36.0); MEAN CORPUSCULAR VOLUME 95.7 fL (79-99); RED BLOOD CELL COUNT(AUTO) 3.29 MIL/uL (4.00-5.50); RED CELL DISTRIBUTION WIDTH 14.6 % (11.0-15.5); WHITE BLOOD COUNT (AUTO) 13.6 K/uL (4.8-10.8)
[2023-09-19] MEDS: CALCIUM GLUC 1GM 1 GM in 0.9%NACL 50ML 50 ML IV PRN ×2 (03:40→04:27)
[2023-09-19 03:51] LABS: CREATININE 0.8 mg/dL (0.5-1.5); MAGNESIUM 1.7 mg/dL (1.80-2.40); PHOSPHORUS 3.8 mg/dL (2.5-4.9); POTASSIUM 4.3 mmol/L (3.5-5.1)
[2023-09-19 04:00] LABS: INR 1.06 (0.85-1.15); PARTIAL THROMBOPLASTIN TIME 28.5 SEC (26.3-35.5); PROTHROMBIN TIME 11.4 SEC (9.6-11.6)
[2023-09-19] MEDS: MAGNESIUM 2GM PREMIX 50ML 50 ML IV PRN (04:06)
[2023-09-19 04:16] LABS: ABG BASE EXCESS 1.3 mmol/L (-2.0-3.0); ABG HCO3 25.7 mmol/L (21.0-28.0); ABG OXYGEN SATURATION 94.1 % (95.0-99.0); ABG PCO2 40 mmHg (32-45); ABG PH 7.427 (7.35-7.450); CARBON MONOXIDE 0.9; DEVICE COMMENT LINE RN CHRIS; HHb 5.8
[2023-09-19] MEDS: CEFAZOLIN SODIUM 2 GM VIAL IVPB SCH (05:52)
[2023-09-19] MEDS: ACETAMINOPHEN 325 MG TAB PO PRN (06:18)
[2023-09-19] MEDS: TRAMADOL HCL 50 MG TABLET PO PRN ×2 (07:38→16:42)
[2023-09-19] MEDS: DOCUSATE SODIUM 100 MG CAP PO SCH ×2 (08:27→20:06)
[2023-09-19] MEDS: FAMOTIDINE 20MG VIAL IV SCH ×2 (08:27→20:06)
[2023-09-19] MEDS: FUROSEMIDE 20MG VIAL IV SCH ×2 (08:27→20:06)
[2023-09-19] MEDS: ASPIRIN 81 MG EC TAB PO SCH (10:25)
[2023-09-19 15:45] LABS: MAGNESIUM 1.8 mg/dL (1.80-2.40); POTASSIUM 4.2 mmol/L (3.5-5.1)
[2023-09-19] MEDS: ATORVASTATIN 40 MG TABLET PO SCH (20:06)
[2023-09-20] VITALS (42 sets, daily range): BP systolic 74–132; BP diastolic 45–84; PULSE 88–115; RESP 14–29; TEMP 98.8; O2SAT 98–100
[2023-09-20] MEDS: TRAMADOL HCL 50 MG TABLET PO PRN ×2 (00:32→19:53)
[2023-09-20 05:36] LABS: HEMATOCRIT 25.5 % (36-48); MEAN CORPUSCULAR HEMOGLOBIN 30.9 pg (27.0-33.0); MEAN CORPUSCULAR HGB CONC 32.2 g/dL (32.0-36.0); MEAN CORPUSCULAR VOLUME 96.2 fL (79-99); RED BLOOD CELL COUNT(AUTO) 2.65 MIL/uL (4.00-5.50); RED CELL DISTRIBUTION WIDTH 14.6 % (11.0-15.5); WHITE BLOOD COUNT (AUTO) 11.1 K/uL (4.8-10.8)
[2023-09-20 05:44] LABS: CREATININE 0.6 mg/dL (0.5-1.5); POTASSIUM 3.8 mmol/L (3.5-5.1)
[2023-09-20] MEDS: POTASSIUM CHLORIDE 20MEQ/100ML 100 ML IV PRN (06:02)
[2023-09-20] MEDS: INSULIN HUMULIN R 100 UNIT/ML 3ML SQ SCH ×3 (07:30→21:00)
[2023-09-20] MEDS: HYDROCODONE/ACETAMINOPHEN 7.5/325 MG TAB PO PRN (07:46)
[2023-09-20] MEDS: MAGNESIUM 2GM PREMIX 50ML 50 ML IV PRN (07:47)
[2023-09-20] MEDS: DOCUSATE SODIUM 100 MG CAP PO SCH ×2 (09:00→21:00)
[2023-09-20] MEDS: FAMOTIDINE 20MG VIAL IV SCH ×2 (09:19→19:54)
[2023-09-20] MEDS: ASPIRIN 81 MG EC TAB PO SCH (09:19)
[2023-09-20] MEDS: FUROSEMIDE 20 MG TABLET PO SCH ×2 (09:19→17:49)
[2023-09-20] MEDS: ATORVASTATIN 40 MG TABLET PO SCH (19:53)
[2023-09-21] VITALS (20 sets, daily range): BP systolic 93–131; BP diastolic 60–80; PULSE 91–110; RESP 16–27; O2SAT 93–95
[2023-09-21 03:58] LABS: HEMATOCRIT 26.8 % (36-48); MEAN CORPUSCULAR HEMOGLOBIN 30.8 pg (27.0-33.0); MEAN CORPUSCULAR HGB CONC 32.1 g/dL (32.0-36.0); MEAN CORPUSCULAR VOLUME 96.1 fL (79-99); RED BLOOD CELL COUNT(AUTO) 2.79 MIL/uL (4.00-5.50); RED CELL DISTRIBUTION WIDTH 14.1 % (11.0-15.5); WHITE BLOOD COUNT (AUTO) 9.5 K/uL (4.8-10.8)
[2023-09-21] MEDS: TRAMADOL HCL 50 MG TABLET PO PRN (04:00)
[2023-09-21 04:08] LABS: CREATININE 0.7 mg/dL (0.5-1.5); POTASSIUM 4.4 mmol/L (3.5-5.1)
[2023-09-21] MEDS: INSULIN HUMULIN R 100 UNIT/ML 3ML SQ SCH ×4 (07:18→20:29)
[2023-09-21] MEDS: FUROSEMIDE 20 MG TABLET PO SCH ×2 (09:17→16:56)
[2023-09-21] MEDS: FAMOTIDINE 20MG TAB PO SCH ×2 (09:17→20:26)
[2023-09-21] MEDS: ENOXAPARIN SODIUM 30 MG/0.3 ML SQ SCH (09:17)
[2023-09-21] MEDS: DOCUSATE SODIUM 100 MG CAP PO SCH ×2 (09:17→20:26)
[2023-09-21] MEDS: ASPIRIN 81 MG EC TAB PO SCH (09:18)
[2023-09-21] MEDS: HYDROCODONE/ACETAMINOPHEN 7.5/325 MG TAB PO PRN ×2 (17:00→23:28)
[2023-09-21] MEDS: ATORVASTATIN 40 MG TABLET PO SCH (20:26)
[2023-09-22 03:46] LABS: HEMATOCRIT 22.8 % (36-48); MEAN CORPUSCULAR HEMOGLOBIN 30.6 pg (27.0-33.0); MEAN CORPUSCULAR HGB CONC 32.9 g/dL (32.0-36.0); MEAN CORPUSCULAR VOLUME 93.1 fL (79-99); RED BLOOD CELL COUNT(AUTO) 2.45 MIL/uL (4.00-5.50); RED CELL DISTRIBUTION WIDTH 13.8 % (11.0-15.5); WHITE BLOOD COUNT (AUTO) 7.9 K/uL (4.8-10.8)
[2023-09-22 04:03] LABS: CREATININE 0.8 mg/dL (0.5-1.5); POTASSIUM 3.4 mmol/L (3.5-5.1)
[2023-09-22 04:20] VITALS: BP 102/65; PULSE 102; RESP 18
[2023-09-22] MEDS: POTASSIUM CHLORIDE 20MEQ/100ML 100 ML IV PRN (06:04)
[2023-09-22] MEDS: INSULIN HUMULIN R 100 UNIT/ML 3ML SQ SCH ×4 (06:32→20:44)
[2023-09-22 07:16] LABS: HEMATOCRIT 25.5 % (36-48); MEAN CORPUSCULAR HEMOGLOBIN 30.8 pg (27.0-33.0); MEAN CORPUSCULAR HGB CONC 32.9 g/dL (32.0-36.0); MEAN CORPUSCULAR VOLUME 93.4 fL (79-99); RED BLOOD CELL COUNT(AUTO) 2.73 MIL/uL (4.00-5.50); RED CELL DISTRIBUTION WIDTH 14.1 % (11.0-15.5)
[2023-09-22] MEDS ORDERED: POTASSIUM CHLORIDE 10% ELIXIR 20 MEQ/15 ML UDCUP PO PRN (07:30)
[2023-09-22] MEDS ORDERED: POTASSIUM CHLORIDE 20MEQ/100ML 100 ML IV PRN (07:30)
[2023-09-22 07:38] VITALS: BP 109/69; PULSE 92; RESP 18
[2023-09-22 07:45] VITALS: O2SAT 100
[2023-09-22] MEDS: KCL 20 MEQ ERTAB PO PRN ×2 (08:17→16:58)
[2023-09-22] MEDS: DOCUSATE SODIUM 100 MG CAP PO SCH ×2 (08:17→20:05)
[2023-09-22] MEDS: ASPIRIN 81 MG EC TAB PO SCH (08:17)
[2023-09-22] MEDS: FUROSEMIDE 20 MG TABLET PO SCH ×2 (08:17→16:56)
[2023-09-22] MEDS: ENOXAPARIN SODIUM 30 MG/0.3 ML SQ SCH (08:17)
[2023-09-22] MEDS: FAMOTIDINE 20MG TAB PO SCH ×2 (08:18→20:05)
[2023-09-22 11:40] VITALS: BP 123/68; PULSE 92; RESP 18
[2023-09-22] MEDS: ACETAMINOPHEN 325 MG TAB PO PRN (16:01)
[2023-09-22 16:39] VITALS: BP 114/68; PULSE 92; RESP 18
[2023-09-22 20:00] VITALS: BP 106/68; PULSE 105; RESP 18; O2SAT 94
[2023-09-22] MEDS: ATORVASTATIN 40 MG TABLET PO SCH (20:05)
[2023-09-23] VITALS: BP 99/69; PULSE 94; RESP 20
[2023-09-23 04:00] VITALS: BP 119/76; PULSE 105; RESP 18
[2023-09-23] MEDS: ACETAMINOPHEN 325 MG TAB PO PRN (05:31)
[2023-09-23] MEDS: INSULIN HUMULIN R 100 UNIT/ML 3ML SQ SCH ×3 (06:42→16:59)
[2023-09-23 08:00] VITALS: BP 91/56; PULSE 60; RESP 18; O2SAT 95
[2023-09-23 08:28] LABS: HEMATOCRIT 26.8 % (36-48); MEAN CORPUSCULAR HEMOGLOBIN 30.7 pg (27.0-33.0); MEAN CORPUSCULAR HGB CONC 32.1 g/dL (32.0-36.0); MEAN CORPUSCULAR VOLUME 95.7 fL (79-99); RED BLOOD CELL COUNT(AUTO) 2.8 MIL/uL (4.00-5.50); RED CELL DISTRIBUTION WIDTH 13.9 % (11.0-15.5); WHITE BLOOD COUNT (AUTO) 6.4 K/uL (4.8-10.8)
[2023-09-23 08:44] LABS: CREATININE 0.8 mg/dL (0.5-1.5); MAGNESIUM 1.7 mg/dL (1.80-2.40); POTASSIUM 3.4 mmol/L (3.5-5.1)
[2023-09-23] MEDS: ASPIRIN 81 MG EC TAB PO SCH (08:48)
[2023-09-23] MEDS: FAMOTIDINE 20MG TAB PO SCH (08:48)
[2023-09-23] MEDS: DOCUSATE SODIUM 100 MG CAP PO SCH (08:49)
[2023-09-23] MEDS: ENOXAPARIN SODIUM 30 MG/0.3 ML SQ SCH (08:49)
[2023-09-23] MEDS: FUROSEMIDE 20 MG TABLET PO SCH ×2 (08:49→17:01)
[2023-09-23] MEDS: KCL 20 MEQ ERTAB PO PRN ×2 (08:54→12:34)
[2023-09-23] MEDS ORDERED: FUROSEMIDE 40MG VIAL IV ONE (11:30)
[2023-09-23] MEDS ORDERED: METOPROLOL TARTRATE 25 MG TAB PO SCH (11:30)
[2023-09-23] MEDS ORDERED: BENZONATATE 100 MG CAPSULE PO ONE (12:25)
[2023-09-23 12:29] VITALS: BP 111/66; PULSE 96; RESP 18
[2023-09-23 16:00] VITALS: BP 116/71; PULSE 97; RESP 18
[2023-09-23] MEDS ORDERED: LISINOPRIL 2.5 MG TABLET ONE (17:19)
== END 2023-09-23 17:27 | disposition home or self-care (01) | DRG 234 ==
LOC: EDH 10:16 → EDHIP 10:17 → UNDOADMIN 12:32 → EDHIP 12:32 → 2AH 14:03 → EDHIP 14:03 → 2CV 09-18 08:37 → 2BH 09-19 13:39 → 2DH 09-21 14:08
PROVIDERS: ADMIT Internal Medicine; ATTEND Internal Medicine
PROC: 4A023N7 Measurement of Cardiac Sampling and Pressure, Left Heart, Percutaneous Approach (ICD-10-PCS; 2023-09-13)
PROC: B2111ZZ Fluoroscopy of Multiple Coronary Arteries using Low Osmolar Contrast (ICD-10-PCS; 2023-09-13)
PROC: B2151ZZ Fluoroscopy of Left Heart using Low Osmolar Contrast (ICD-10-PCS; 2023-09-13)
PROC: B3121ZZ Fluoroscopy of Left Subclavian Artery using Low Osmolar Contrast (ICD-10-PCS; 2023-09-13)
PROC: 06BQ4ZZ Excision of Left Saphenous Vein, Percutaneous Endoscopic Approach (ICD-10-PCS; 2023-09-18)
PROC: 0PH000Z Insertion of Rigid Plate Internal Fixation Device into Sternum, Open Approach (ICD-10-PCS; 2023-09-18)
PROC: 5A1221Z Performance of Cardiac Output, Continuous (ICD-10-PCS; 2023-09-18)
PROC: 02100Z9 Bypass Coronary Artery, One Artery from Left Internal Mammary, Open Approach (ICD-10-PCS; principal; 2023-09-18 08:51)
PROC: 021209W Bypass Coronary Artery, Three Arteries from Aorta with Autologous Venous Tissue, Open Approach (ICD-10-PCS; 2023-09-18 08:51)
PROC: 4A02XM4 Measurement of Cardiac Total Activity, External Approach (ICD-10-PCS; 2023-09-22)
PROC: 3E033HZ Introduction of Radioactive Substance into Peripheral Vein, Percutaneous Approach (ICD-10-PCS; 2023-09-22)
DX: I25.110 Atherosclerotic heart disease of native coronary artery with unstable angina pectoris (principal); N39.0 Urinary tract infection, site not specified; E86.0 Dehydration; I10 Essential (primary) hypertension; E11.40 Type 2 diabetes mellitus with diabetic neuropathy, unspecified; F32.A Depression, unspecified; F41.0 Panic disorder [episodic paroxysmal anxiety]; E66.9 Obesity, unspecified; E78.00 Pure hypercholesterolemia, unspecified; E11.51 Type 2 diabetes mellitus with diabetic peripheral angiopathy without gangrene; Z79.02 Long term (current) use of antithrombotics/antiplatelets; Z95.5 Presence of coronary angioplasty implant and graft; Z79.899 Other long term (current) drug therapy; Z82.49 Family history of ischemic heart disease and other diseases of the circulatory system; Z83.3 Family history of diabetes mellitus; Z79.84 Long term (current) use of oral hypoglycemic drugs; Z68.31 Body mass index [BMI] 31.0-31.9, adult
CPT/HCPCS: 36415; 36600; 71045; 78452; 80048; 80053; 80061; 80305; 81001; 81025; 82306; 82330; 82435; 82550; 82803; 82947; 82948; 83036; 83605; 83735; 83874; 83880; 84100; 84132; 84145; 84295; 84443; 84484; 85018; 85025; 85027; 85610; 85730; 86140; 86850; 86900; 86901; 86923; 87088; 87641; 93005; 93017; 93306; 93312; 93356; 93458; 93880; 94002; 94010; 94150; 96372; 96374; 99291; A7048; A9500; C1760; C1894; G0378; J0171; J0583; J0610; J0690; J1644; J1650; J1815; J1940; J2001; J2250; J2270; J2405; J2440; J2543; J2704; J2720; J2785; J3010; J3475; J3480; J3490; J7030; J7040; J7120; P9045; Q9967; A4215; A4216; A4221; A4222; A4223; A4315; A4452; A4510; A4600; A4649; A4930; A6204; A6219; C1713; C1729; C1776; Q9965

== ENCOUNTER 2023-10-15 11:51 | Emergency (ER) | payer OTHER ==
[~2023-10-15] VITALS: Ht 160 cm; Wt 74.8 kg
[~2023-10-15 11:51] MED LIST changes: +BENZ-226 PO; +DAPA5TAB PO; +GABA300C PO; -LISI20TA24 PO
[2023-10-15 11:58] VITALS: BP 99/60; PULSE 81; RESP 18
[2023-10-15] MEDS ORDERED: CEPH500T PO (13:07)
[2023-10-15] MEDS ORDERED: MUPI22OINT TP (13:07)
== END 2023-10-15 14:34 | disposition home or self-care (01) ==
LOC: EDH 11:51
DX: L03.313 Cellulitis of chest wall (principal); I10 Essential (primary) hypertension; E78.00 Pure hypercholesterolemia, unspecified; E11.9 Type 2 diabetes mellitus without complications; Z79.82 Long term (current) use of aspirin; Z79.84 Long term (current) use of oral hypoglycemic drugs; Z79.899 Other long term (current) drug therapy; Z98.890 Other specified postprocedural states

== ENCOUNTER 2023-11-01 19:39 | Emergency (ER) | payer OTHER ==
[~2023-11-01] VITALS: Ht 160 cm; Wt 76.7 kg
[~2023-11-01 19:39] MED LIST changes: +CEPH500T PO; +MUPI22OINT TP
[2023-11-01] MEDS ORDERED: IBUPROFEN 800 MG TAB PO ONE (21:30)
[2023-11-01] MEDS ORDERED: IBUP-1493 PO (21:49)
[2023-11-01 22:45] VITALS: BP 128/64; PULSE 64; RESP 18; O2SAT 97
== END 2023-11-01 22:50 | disposition home or self-care (01) ==
LOC: EDH 19:39
DX: S80.01XA Contusion of right knee, initial encounter (principal); M25.562 Pain in left knee; I10 Essential (primary) hypertension; E11.9 Type 2 diabetes mellitus without complications; E78.00 Pure hypercholesterolemia, unspecified; Z79.82 Long term (current) use of aspirin; Z79.84 Long term (current) use of oral hypoglycemic drugs; Z79.899 Other long term (current) drug therapy; Z98.890 Other specified postprocedural states; W18.39XA Other fall on same level, initial encounter; Y93.89 Activity, other specified; Y92.89 Other specified places as the place of occurrence of the external cause; Y99.8 Other external cause status
CPT/HCPCS: 73562

== ENCOUNTER → 2024-01-17 | Outpatient (CLI) | payer OTHER, SELFPAY ==
[~2024-01-17] MED LIST changes: +IBUP-1493 PO
== END | disposition home or self-care (01) ==
LOC: CANSCHCLI → SHCH 12:58
PROVIDERS: ATTEND Student in an Organized Health Care Education/Training Program
DX: I11.9 Hypertensive heart disease without heart failure (principal); I25.10 Atherosclerotic heart disease of native coronary artery without angina pectoris; E11.9 Type 2 diabetes mellitus without complications
CPT/HCPCS: 93306

== ENCOUNTER 2024-01-26 17:44 | Emergency (ER) | payer BC, OTHER, SELFPAY ==
[~2024-01-26] VITALS: Ht 160 cm; Wt 72.1 kg
[2024-01-26 19:19] LABS: APPEARANCE,URINE CLEAR (CLEAR); BILIRUBIN,URINE NEGATIVE (NEGATIVE); COLOR,URINE LIGHT-YELLOW (YELLOW); GLUCOSE, URINE (UA) NEGATIVE (NEGATIVE); KETONES,URINE NEGATIVE (NEGATIVE); LEUKOCYTE ESTERASE ,URINE 75 Leu/uL (NEGATIVE); NITRATE,URINE 1+ (NEGATIVE); OCCULT BLOOD,URINE NEGATIVE (NEGATIVE); PROTEIN,URINE 50 mg/dL (NEGATIVE); UROBILINOGEN,URINE 0.2 mg/dL (0.2-1.0)
[2024-01-26 19:22] LABS: ADD UA MICROSCOPIC YES; HCG,QUALITATIVE URINE NEGATIVE (NEGATIVE)
[2024-01-26 19:24] LABS: BACTERIA,URINE MANY /HPF (None Seen); SQUAMOUS EPITHELIAL CELL,UR RARE /HPF (0-2)
[2024-01-26 20:29] LABS: CARBON DIOXIDE 29 mmol/L (21-32); CHLORIDE 101 mmol/L (101-111); CREATININE 1.2 mg/dL (0.5-1.0); GLOMERULAR FILTR. RATE CALC 55 mL/min (>90); GLUCOSE,RANDOM 176 mg/dL (70-105); POTASSIUM 5.3 mmol/L (3.5-5.1); SODIUM SERUM 135 mmol/L (136-145); UREA NITROGEN, BLOOD 29 mg/dL (7-18)
[2024-01-26 20:35] LABS: ALANINE AMINOTRANSFERASE 16 U/L (12-78); ALBUMIN 3.3 g/dL (3.5-5.0); ASPARTATE AMINOTRANSFERASE 10 U/L (10-37); BILIRUBIN,TOTAL 0.7 mg/dL (0.2-1.0); CREATINE KINASE, TOTAL 54 U/L (21-232); TOTAL PROTEIN, SERUM 7.9 g/dL (6.0-8.3)
[2024-01-26] MEDS: MORPHINE 4 MG SYG IM ONE (20:55)
[2024-01-26 20:58] LABS: BASOPHILS # (AUTO) 0.03 K/uL (0.00-0.20); BASOPHILS % (AUTO) 0.3 % (0.0-5.0); EOSINOPHILS # (AUTO) 0.26 K/uL (0.00-0.70); EOSINOPHILS % (AUTO) 2.3 % (0.0-8.0); HEMATOCRIT 32.5 % (36-48); IMMATURE GRANULOCYTE ABSOLUTE 0.08 K/uL (0-1); LYMPHOCYTES # (AUTO) 1.1 K/uL (1.0-4.8); LYMPHOCYTES % (AUTO) 9.4 % (21.0-51.0); MEAN CORPUSCULAR HEMOGLOBIN 27.6 pg (27.0-33.0); MEAN CORPUSCULAR HGB CONC 31.4 g/dL (32.0-36.0); MEAN CORPUSCULAR VOLUME 88.1 fL (79-99); MONOCYTES # (AUTO) 0.7 K/uL (0.1-1.0); MONOCYTES % (AUTO) 6.1 % (3.0-13.0); NEUTROPHILS # (AUTO) 9.1 K/uL (1.8-7.7); NEUTROPHILS % (AUTO) 81.2 % (40.0-77.0); PLATELET COUNT (AUTO) 291 K/uL (130-400); RED BLOOD CELL COUNT(AUTO) 3.69 MIL/uL (4.00-5.50); RED CELL DISTRIBUTION WIDTH 16.4 % (11.0-15.5); WHITE BLOOD COUNT (AUTO) 11.2 K/uL (4.8-10.8)
[2024-01-26] MEDS: 0.9%NACL 1000ML 1,000 ML IV SCH (21:03)
[2024-01-26] MEDS: CEFTRIAXONE 1G VIAL IVPB ONE (21:04)
[2024-01-26] MEDS: MORPHINE 4 MG SYG IVP ONE (21:04)
[2024-01-26 21:31] LABS: WBC MORPHOLOGY CONSISTENT W/DIFF
[2024-01-26] MEDS ORDERED: MELO-106 PO (22:22)
[2024-01-26] MEDS ORDERED: METH4TAB15 PO (22:28)
[2024-01-26 22:38] VITALS: BP 140/95; PULSE 102; RESP 20; O2SAT 96
== END 2024-01-26 22:46 | disposition home or self-care (01) ==
LOC: EDH 17:44
DX: N39.0 Urinary tract infection, site not specified (principal); M06.862 Other specified rheumatoid arthritis, left knee; M06.842 Other specified rheumatoid arthritis, left hand; I10 Essential (primary) hypertension; E11.9 Type 2 diabetes mellitus without complications; E78.00 Pure hypercholesterolemia, unspecified; Z79.82 Long term (current) use of aspirin; Z79.84 Long term (current) use of oral hypoglycemic drugs; Z79.899 Other long term (current) drug therapy; Z98.890 Other specified postprocedural states
CPT/HCPCS: 99284; 96365; 96361; 96375; 82550; 84484; 80053; 83690; 85025; 87077; 87088; 87186; 86431; 81001; 81025; 36415; 93005; J7030; J0696; J2270; 96374

== ENCOUNTER 2024-02-13 20:19 | Emergency (ER) | payer BC, OTHER ==
[~2024-02-13] VITALS: Ht 160 cm; Wt 74.8 kg
[~2024-02-13 20:19] MED LIST changes: +MELO-106 PO; +METH4TAB15 PO
[2024-02-13] MEDS: KETOROLAC 30MG VIAL (30MG/ML) IM ONE (22:40)
[2024-02-14] MEDS ORDERED: INHA1INH MC (00:39)
[2024-02-14] MEDS ORDERED: ALBUHFA IH (00:39)
[2024-02-14 00:40] VITALS: BP 124/77; PULSE 78; RESP 16; O2SAT 96
[2024-02-14] MEDS ORDERED: NAPR-1180 PO (00:41)
== END 2024-02-14 00:49 | disposition home or self-care (01) ==
LOC: EDH 20:19
DX: J90 Pleural effusion, not elsewhere classified (principal); J98.11 Atelectasis; E11.9 Type 2 diabetes mellitus without complications; E78.00 Pure hypercholesterolemia, unspecified; I10 Essential (primary) hypertension; Z79.02 Long term (current) use of antithrombotics/antiplatelets; Z79.1 Long term (current) use of non-steroidal anti-inflammatories (NSAID); Z79.4 Long term (current) use of insulin; Z79.52 Long term (current) use of systemic steroids; Z79.82 Long term (current) use of aspirin; Z79.84 Long term (current) use of oral hypoglycemic drugs; Z79.899 Other long term (current) drug therapy
CPT/HCPCS: 99284; 71101; 96372; 93005; J1885

== ENCOUNTER 2024-06-22 14:14 | Emergency (ER) | payer BC ==
[~2024-06-22] VITALS: Ht 160 cm; Wt 70.8 kg
[~2024-06-22 14:14] MED LIST changes: +ALBUHFA IH; -CEPH500T PO; -IBUP-1493 PO; +INHA1INH MC; -MELO-106 PO; -METH4TAB15 PO; -MUPI22OINT TP; +NAPR-1180 PO
[2024-06-22 15:01] LABS: BASOPHILS # (AUTO) 0.08 K/uL (0.00-0.20); BASOPHILS % (AUTO) 0.7 % (0.0-5.0); EOSINOPHILS # (AUTO) 0.67 K/uL (0.00-0.70); EOSINOPHILS % (AUTO) 5.7 % (0.0-8.0); HEMATOCRIT 31.7 % (36-48); IMMATURE GRANULOCYTE ABSOLUTE 0.08 K/uL (0-1); LYMPHOCYTES # (AUTO) 1.4 K/uL (1.0-4.8); LYMPHOCYTES % (AUTO) 12.3 % (21.0-51.0); MEAN CORPUSCULAR HEMOGLOBIN 26.1 pg (27.0-33.0); MEAN CORPUSCULAR HGB CONC 30.6 g/dL (32.0-36.0); MEAN CORPUSCULAR VOLUME 85.2 fL (79-99); MONOCYTES # (AUTO) 0.8 K/uL (0.1-1.0); MONOCYTES % (AUTO) 6.8 % (3.0-13.0); NEUTROPHILS # (AUTO) 8.6 K/uL (1.8-7.7); NEUTROPHILS % (AUTO) 73.8 % (40.0-77.0); PLATELET COUNT (AUTO) 345 K/uL (130-400); RED BLOOD CELL COUNT(AUTO) 3.72 MIL/uL (4.00-5.50); WHITE BLOOD COUNT (AUTO) 11.7 K/uL (4.8-10.8)
[2024-06-22 15:12] LABS: CREATININE 0.9 mg/dL (0.5-1.0)
[2024-06-22 15:16] LABS: ALBUMIN 3.1 g/dL (3.5-5.0); BILIRUBIN,TOTAL 0.6 mg/dL (0.2-1.0); TOTAL PROTEIN, SERUM 7.7 g/dL (6.0-8.3)
[2024-06-22] MEDS: 0.9%NACL 1000ML 1,000 ML IV ONE (15:39)
[2024-06-22] MEDS: LIDOCAINE HCL 2% VISCOUS 15 ML UDCUP PO ONE (15:39)
[2024-06-22] MEDS: ONDANSETRON 4MG INJ IVP ONE (15:39)
[2024-06-22 15:50] LABS: APPEARANCE,URINE CLEAR (CLEAR); BILIRUBIN,URINE MODERATE mg/dL (NEGATIVE); COLOR,URINE YELLOW (YELLOW); GLUCOSE, URINE (UA) 250 mg/dL (NEGATIVE); KETONES,URINE 5 mg/dL (NEGATIVE); LEUKOCYTE ESTERASE ,URINE TRACE Leu/uL (NEGATIVE); NITRATE,URINE POSITIVE (NEGATIVE); OCCULT BLOOD,URINE NEGATIVE (NEGATIVE); PROTEIN,URINE >=300 mg/dL (NEGATIVE)
[2024-06-22 15:52] LABS: ADD UA MICROSCOPIC YES
[2024-06-22 16:01] LABS: BACTERIA,URINE Few /HPF (None Seen); MUCUS,URINE Few LPF (None Seen); RBC,URINE None Seen /HPF (0-1); SQUAMOUS EPITHELIAL CELL,UR Few /HPF (0-2)
[2024-06-22] MEDS ORDERED: CEPH500B PO (16:52)
[2024-06-22 17:04] VITALS: BP 121/60; PULSE 75; RESP 18; O2SAT 96
== END 2024-06-22 17:05 | disposition home or self-care (01) ==
LOC: EDH 14:14
DX: A08.4 Viral intestinal infection, unspecified (principal); N39.0 Urinary tract infection, site not specified; D64.9 Anemia, unspecified; E86.0 Dehydration; E11.9 Type 2 diabetes mellitus without complications; E78.00 Pure hypercholesterolemia, unspecified; I10 Essential (primary) hypertension; Z88.8 Allergy status to other drugs, medicaments and biological substances; Z79.899 Other long term (current) drug therapy; Z79.82 Long term (current) use of aspirin; Z79.84 Long term (current) use of oral hypoglycemic drugs; Z98.61 Coronary angioplasty status; Z89.422 Acquired absence of other left toe(s); Z89.421 Acquired absence of other right toe(s)
CPT/HCPCS: 99284; 96374; 96361; 80053; 83690; 85025; 87086; 81001; 36415; J7030; J2405

== ENCOUNTER 2025-08-27 19:01 | Emergency (ER) | payer BC ==
[~2025-08-27] VITALS: Ht 160 cm; Wt 81.2 kg
[~2025-08-27 19:01] MED LIST changes: +CEPH500B PO
[2025-08-27 19:10] VITALS: BP 126/72; PULSE 88; RESP 18; TEMP 98; O2SAT 99
--- NOTE | 2025-08-27 19:23 | ERN ---
ED Note History of Present Illness Stated Complaint: LT FOOT PAIN Chief Complaint: FOOT INJURY/PAIN Time Seen by MD: 19:08 Dictation: 49-year-old female presents to ER complaints of right great toe with partial nail avulsion onset 2 days ago. Patient is seen by doctor today and was prescribed antibiotics. Patient noted swelling today so came to the emergency room. Patient denies any fever Allergies: Coded Allergies: No Known Drug Allergies (Unverified Allergy, Unknown, 02/24/23) Home Meds Active Scripts Cephalexin Monohydrate (Keflex) 500 Mg Cap, 500 MG PO BID for 7 Days, #14 CAP Prov:FRANDY JACOBS I PAC 06/22/24 Naproxen (Naprosyn) 500 Mg Tablet, 500 MG PO BIDPC PRN for PAIN LEVEL 6 TO 10 for 5 Days, #10 TAB 0 Refills Prov:DARIO BASS 02/14/24 Spirometers and Accessories (in-Check Dial) 1 Each Each, EACH MC TID for ATELECTASIS, #1 INCENTIVE SPIROMETER EXERCISE DIRECTED Prov:DARIO BASS 02/14/24 Albuterol Sulfate (Ventolin Hfa/Proventil Hfa/Proair Hfa) 90 Mcg Puff, 1 PUFF IH Q4H PRN for SHORTNESS OF BREATH for 5 Days, #1 INH 0 Refills PHARMACY TO DISPENSE 1 INHALER FOR USE Prov:DARIO BASS 02/14/24 Reported Medications Benzonatate (Benzonatate) 100 Mg Capsule, 100 MG PO TID, CAP 09/10/23 Gabapentin (Neurontin) 300 Mg Capsule, 300 MG PO BID, CAP 09/10/23 Dapagliflozin Propanediol (Farxiga) 5 Mg Tablet, 5 MG PO DAILYBKFST, TAB 09/10/23 Metoprolol Succinate (Metoprolol Succinate) 50 Mg Tab.er.24h, 50 MG PO DAILY, TAB 06/23/23 Isosorbide Mononitrate (Isosorbide Mononitrate ER) 30 Mg Tab.er.24h, 30 MG PO DAILY, TAB 06/23/23 Hum Insulin NPH/Reg Insulin Hm (Humulin 70-30 Vial) 100 Unit/1 Ml Vial, 10 UNITS SQ DAILY, VIAL 06/23/23 Baclofen (Baclofen) 5 Mg Tablet, 5 MG PO HSPRN PRN for MUSCLE SPASMS, TAB 06/23/23 Clopidogrel Bisulfate (Plavix) 75 Mg Tablet, 75 MG PO DAILY, TAB 02/28/23 Aspirin (Aspirin) 81 Mg Tab.chew, 81 MG PO DAILY, TAB.CHEW 02/28/23 Famotidine (Famotidine) 20 Mg Tablet, 20 MG PO BID, TAB 02/24/23 Atorvastatin Calcium (LIPITOR) 40 Mg Tablet, 40 MG PO HS, TAB 02/24/23 Empagliflozin (Jardiance) 10 Mg Tablet, 10 MG PO DAILY, TAB 02/24/23 Metformin HCl (Metformin HCl) 1,000 Mg Tablet, 1000 MG PO BID, TAB 02/24/23 Past Medical History Past Medical History: Depression, Diabetes-Type II, High Cholesterol, Hyp ertension Additional Past Medical Hx: PVD Surgical History: CABG Surgical History Other: LT 5TH TOE AMPUTATION, RT 2ND AND 3RD TOE AMPUTATION Social History: Negative Review of System Dictation CONSTITUTIONAL: NEGATIVE FOR FEVER,CHILLS, AND WEIGHT LOSS EYES: NEGATIVE FOR INJURY, PAIN,REDNESS, AND DISCHARGE ENT: NEGATIVE FOR INJURY,PAIN OR SWELLING CARDIOVASCULAR: NEGATIVE FOR CHEST PAIN, PALPITATIONS, AND EDEMA RESPIRATORY: NEGATIVE FOR SHORTNESS OF BREATH, COUGH, WHEEZING, AND PLEURITIC CHEST PAIN ABDOMEN/GI: NEGATIVE FOR ABDOMINAL PAIN, NAUSEA, VOMITING AND DIARRHEA. BACK: NEGATIVE FOR PAIN OR INJURY : NEGATIVE FOR INJURY, BLEEDING AND DISCHARGE MS/EXTREMITY: Right great toe pain SKIN: Right great toe with ecchymosis and erythema NEURO: NEGATIVE FOR HEADACHE, WEAKNESS, NUMBNESS, TINGLING, AND SEIZURE PSYCH: NEGATIVE FOR SUICIDE IDEATION, HOMICIDAL IDEATION, AND HALLUCINATIONS ALLERGY/IMMUNOLOGY: NEGATIVE FOR HIVES, RASH, AND ALLERGIES ALL SYSTEMS NEGATIVE, EXCEPT NOTED ABOVE. 13 POINT REVIEW OF SYSTEMS ASSESSED AND ALL NEGATIVE EXCEPT FOR ABOVE. Initial Vital Sign VS Vital Signs Date Time Temp Pulse Resp B/P (MAP) Pulse Ox O2 Delivery O2 Flow Rate FiO2 08/27/25 19:02 98.1 88 16 124/71 97 Room Air 08/27/25 19:10 0 21 Physical Exam Dictation General: awake, alert, NAD Head/Face: Normocephalic, atraumatic Eyes: PERRL, EOMI, vision at baseline ENT: oral cavity clear, TMs clear, no signs of infection Neck: Trachea midline, supple, no nuchal rigidity Cardiovascular: RRR, normal no JVD Respiratory: CTAB, no respiratory distress, No rales or wheezes Abdomen: Soft, non-tender, non-distended, normal bowel sounds, no guarding or rebound. Skin: Warm, dry, right great toe with ecchymosis and erythema. MS/Extremity: Pulses equal, no cyanosis, neurovascular intact, FROM Neuro: COAx4, GCS 15, strength 5/5, CN 2-12 intact, normal cerebellar exam, normal gait, Psych: Normal behavior, mood, and affect normal ED Course ED Course Orders Procedure Category Date Status Time Foot Comp 3+Vws Rt RAD 08/27/25 Logged 19:09 Vital Signs Date Time Temp Pulse Resp B/P (MAP) Pulse Ox O2 Delivery O2 Flow Rate FiO2 08/27/25 19:10 98.1 88 18 126/72 99 Room Air* 0 21 08/27/25 19:02 98.1 88 16 124/71 97 Room Air Medical Decision Making MDM MDM: Differential diagnosis: Right great toe infection, cellulitis, nail avulsion Rationale: Tests considered and ordered secondary to shared decision making include: labs, ECG and radiology Previous outside records reviewed: Old ER visits. Risk of complication and/or morbidity or mortality of patient management: None Medications-Per medication reconciliation Need for hospitalization: Patient does NOT meet criteria for hospitalization. Need for emergency major/minor surgery: No There are no social concerns with this patient. Prescription drug management Prescriptions will include symptomatic care Patient's prior external medical records from other ER visits were reviewed by me as indicated. Prior testing and results from previous visits were reviewed. Prior tests were taken into account with medical decision making and resource utilization, independent historian/historians were used to obtain complete medical history. I independently interpreted the test that were performed, results were reviewed by me and considered findings on radiology if ordered. Patient advised to give antibiotic treatment the chance to work since hit was prescribed by PCP today.. If symptoms are worsening in the next 24-48 hours to return to PCP or to us for further evaluation DX & DISP Disposition: Discharge Departure Impression: Primary Impression: Nail avulsion of toe Additional Impression: Toe infection Condition: Stable Additional Instructions: The medications prescribed by your doctor. If symptoms worsen in the next 24-48 hours return to ER immediately or with her PCP for further evaluation. Referrals: MALACHI MINOR MD (PCP) KEI THAO Aug 27, 2025 19:23
== END 2025-08-27 19:38 | disposition home or self-care (01) ==
LOC: EDH 19:01
DX: S91.201A Unspecified open wound of right great toe with damage to nail, initial encounter (principal); E78.00 Pure hypercholesterolemia, unspecified; I10 Essential (primary) hypertension; L08.9 Local infection of the skin and subcutaneous tissue, unspecified; E11.51 Type 2 diabetes mellitus with diabetic peripheral angiopathy without gangrene; Z79.02 Long term (current) use of antithrombotics/antiplatelets; Z79.4 Long term (current) use of insulin; Z79.82 Long term (current) use of aspirin; Z79.84 Long term (current) use of oral hypoglycemic drugs; Z79.899 Other long term (current) drug therapy; Z89.421 Acquired absence of other right toe(s); Z89.422 Acquired absence of other left toe(s); Z95.1 Presence of aortocoronary bypass graft; X58.XXXA Exposure to other specified factors, initial encounter; Y93.89 Activity, other specified; Y92.89 Other specified places as the place of occurrence of the external cause; Y99.8 Other external cause status
CPT/HCPCS: 99282